=== PATIENT | female | born 1975 | race African-American/Black ===

== ENCOUNTER 2017-12-21 20:24 | Emergency (ER) | payer OTHER ==
[~2017-12-21] VITALS: Ht 154.9 cm; Wt 85.7 kg
[2017-12-21 20:33] VITALS: BP 132/88
--- NOTE | 2017-12-21 21:43 | ED DYSPNEA/ASTHMA COMPLAINT ---
History of Present Illness General Chief Complaint: Dyspnea (COPD, CHF, Other) Stated Complaint: SOB Source: patient, family, old records Exam Limitations: no limitations Vital Signs & Intake/Output Vital Signs & Intake/Output Vital Signs Date Time Temp Pulse Resp B/P B/P Pulse O2 O2 Flow FiO2 Mean Ox Delivery Rate 12/21 2145 96 12/21 214 Room Air 12/21 2032 96.7 97 20 132/88 99 Room Air Allergies Coded Allergies: metformin (Intermediate, GI UPSET 12/21/17) Triage Note: PT TO ER C/C DRY COUGH X 1 DAY. HX OF ASTHMA, USING ALBUTEROL W/O RELIEF. RA SAT 98% Triage Nurses Notes Reviewed? yes Onset: 1 day Duration: day(s):, constant, continues in ED, getting worse Timing: recent history Severity: moderate, severe Activities at Onset: rest Prior Episodes/Possible Cause: allergen exposure Modifying Factors: Worsens With: movement. Associated Symptoms: cough, wheezing, weakness LMP (ages 10-50): unknown : No Patient currently breastfeeds: No HPI: 1 day prior to admission patient complains of increasing allergy runny nose congestion wheezing. The wheezing became severe not relieved with rescue inhaler accompanied with chest tightness. She denies fever chills nausea vomiting diarrhea abdominal pain headache dysuria rash bleeding. Past History Travel History Traveled to [place] past 21 day No Medical History Any Pertinent Medical History? see below for history Respiratory: asthma Endocrine: DM Surgical History Surgical History: non-contributory Psychosocial History What is your primary language German Tobacco Use: Never used Family History Hx Contributory? No Review of Systems Review of Systems Constitutional: Reports: see HPI. EENTM: Reports: see HPI, nasal congestion. Respiratory: Reports: see HPI, cough, short of breath, wheezing. Cardiovascular: Reports: see HPI, chest pain. GI: Reports: no symptoms. Genitourinary: Reports: no symptoms. Musculoskeletal: Reports: no symptoms. Skin: Reports: no symptoms. Neurological/Psychological: Reports: no symptoms. Hematologic/Endocrine: Reports: no symptoms. Immunologic/Allergic: Reports: no symptoms. All Other Systems: Reviewed and Negative Physical Exam Physical Exam General Appearance: well developed/nourished, alert, awake, anxious, moderate distress, obese Head: atraumatic, normal appearance Eyes: Bilateral: normal appearance, PERRL, EOMI. Ears, Nose, Throat: hearing grossly normal, pharyngeal erythema, moist mucus membranes Neck: normal inspection, supple, full range of motion, no midline tenderness Respiratory: chest non-tender, decreased breath sounds, wheezing Cardiovascular: regular rate/rhythm, normal peripheral pulses, norml femoral pulses equa Peripheral Pulses: 4+ carotid (R), 4+ carotid (L) Gastrointestinal: normal bowel sounds, soft, non-tender, no organomegaly Extremities: normal inspection, normal capillary refill, normal range of motion, no edema, no ligament instability Neurologic/Psych: no motor/sensory deficits, awake, alert, oriented x 3, normal gait, normal mood/affect, production finisher II-XII nml as tested Skin: intact, normal color, warm/dry Lymphatic: no anterior cervical kimberly Core Measures ACS in differential dx? No CVA/TIA Diagnosis No Sepsis Present: No Sepsis Focused Exam Completed? No Progress Differential Diagnosis: asthma, CHF, COPD, pneumonia Plan of Care: Current Medications Sig/Jeremias Start time Last Medication Dose Stop Time Status Admin Albuterol Sulfate 3 ML ONCE ONE 12/21 2144 UNVr 12/21 (Proventil) 12/21 Albuterol Sulfate 3 ML ONCE ONE 12/21 2144 UNVr (Proventil) 12/21 2145 Diphenhydramine HCl 50 MG ONCE ONE 12/21 2144 UNVr (Benadryl) 12/21 2145 Ipratropium [place] 2.5 ML ONCE ONE 12/21 2144 UNVr 12/21 (Atrovent) 12/21 Prednisone 60 MG ONCE ONE 12/21 2144 UNVr 12/21 2145 Initial ED EKG: none Departure Departure Time of Disposition: 2208 Disposition: HOME OR SELF CARE Condition: Stable Clinical Impression Primary Impression: Asthma with acute exacerbation in adult Referrals: Romero MILLS,Clifton Fuller (PCP/Family) Departure Forms: Customer Survey General Discharge Information Prescriptions: Current Visit Scripts Prednisone 1 TAB PO BID #10 TAB Albuterol Sulfate 1 Vial INH/AARVIND Q4P PRN wheezing #50 Vial Ref 5 Nebulizer (Aeroneb Go Nebulizer) 1 UNIT INH Q4P PRN asthma #1 EACH Critical Care Note Critical Care Note Critical Care Time: non-applicable
[2017-12-21] MEDS ORDERED: PREDNISONE20 M1 PO (22:11)
[2017-12-21] MEDS ORDERED: ALBUTEROL2.5 MG/3 M INH/SOL (22:11)
[2017-12-21] MEDS ORDERED: AERONEB GO NEB1 EACH INH (22:11)
== END 2017-12-21 22:11 ==
LOC: ERH 20:24
DX: J45.901 Unspecified asthma with (acute) exacerbation (principal)
CPT/HCPCS: 1263